=== PATIENT | male | born 1975 | race Caucasian/White ===

== ENCOUNTER 2020-12-30 03:26 | Outpatient (CLI) | payer MEDICARE, MEDICAID, SELFPAY ==
[2020-12-30 13:55] LABS: Abs Immature Grans 0.02 10^3/uL (0.0-0.06); Absolute Basophil Count 0.02 10^3/uL (0.0-0.2); Absolute Eosinophil Count 0.11 10^3/uL (0.0-0.7); Absolute Lymphocyte Count 1.55 10^3/uL (1.2-3.4); Absolute Monocyte Count 0.57 10^3/uL (0.1-0.8); Absolute Neutrophil Count 3.75 10^3/uL (1.2-6.7); Basophils % 0.3; Eosinophils % 1.8; HCT 31.1 % (40.0-50.0); HGB 10.5 g/dL (13.5-17.5); Immature Grans % 0.3; Lymphocytes % 25.7; MCHC 33.8 % (32.0-36.0); MCV 94.8 fL (80-95); MPV 10.9 fL (8.0-11.0); Monocytes % 9.5; Neutrophils % 62.4; Nucleated RBC 0 %; Platelet Count 169 10^3/uL (130-400); RBC 3.28 10^6/uL (4.36-5.78); RDW 12.3 % (11.8-14.1); RDW-SD 43.2 fL; WBC 6.02 10^3/uL (4.4-10.8)
[2020-12-30 14:30] LABS: Hemoglobin A1C 5.6 % (<5.7)
[2020-12-30 15:07] LABS: Vitamin D 25 Total 24.2 ng/mL (30-100)
[2020-12-30 15:12] LABS: ALT 21 U/L (16-63); AST 13 U/L (15-37); Albumin 4.2 g/dL (3.4-5.0); Alkaline Phosphatase 74 U/L (46-116); Anion Gap 9.2 mmol/L (3-11); BUN 28 mg/dL (7-18); Bilirubin, Total 0.3 mg/dL (0.2-1.0); CO2 24.8 mmol/L (21.0-32.0); CREATININE 2.7 mg/dL (0.70-1.30); Calcium 9.1 mg/dL (8.5-10.1); Calculated LDL 115 mg/dL (<100); Chloride 108 mmol/L (98-107); Cholesterol 190 mg/dL (<200); Estimated GFR 25.57 (mL/min/1.73m2); Glucose 103 mg/dL (74-106); HDL Cholesterol 49 mg/dL (40-60); Magnesium 2.2 mg/dL (1.8-2.4); Potassium 3.9 mmol/L (3.5-5.1); Sodium 142 mmol/L (136-145); Total Protein 7.3 g/dL (6.4-8.2); Triglyceride 134 mg/dL (<150); Vitamin B12 329 pg/mL (193-986)
[2020-12-30 15:35] LABS: C-Reactive Protein 0.07 mg/dL (0.0-0.3); FREE T4 0.68 ng/dL (0.76-1.46)
[2020-12-30 21:18] LABS: T3, Total 84 ng/dL (97-169)
== END 2020-12-30 03:27 | disposition home or self-care (01) ==
LOC: LBO 03:27
PROVIDERS: PCP Family Medicine; Visit Provider Psychiatry & Neurology Psychiatry
DX: F60.3 Borderline personality disorder (principal); Z79.899 Other long term (current) drug therapy
CPT/HCPCS: 36415; 80053; 80061; 82306; 82607; 83036; 83735; 84439; 84480; 85025; 86140

== ENCOUNTER 2021-03-10 03:53 | Outpatient (CLI) | payer MEDICARE, MEDICAID, SELFPAY ==
[2021-03-10 11:27] LABS: Abs Immature Grans 0.01 10^3/uL (0.0-0.06); Absolute Basophil Count 0.02 10^3/uL (0.0-0.2); Absolute Eosinophil Count 0.15 10^3/uL (0.0-0.7); Absolute Lymphocyte Count 1.24 10^3/uL (1.2-3.4); Absolute Monocyte Count 0.48 10^3/uL (0.1-0.8); Absolute Neutrophil Count 2.14 10^3/uL (1.2-6.7); Basophils % 0.5; Eosinophils % 3.7; HCT 32.7 % (40.0-50.0); HGB 10.8 g/dL (13.5-17.5); Immature Grans % 0.2; Lymphocytes % 30.7; MCV 96.7 fL (80-95); MPV 10.5 fL (8.0-11.0); Monocytes % 11.9; Nucleated RBC 0 %; Platelet Count 143 10^3/uL (130-400); RBC 3.38 10^6/uL (4.36-5.78); RDW 12.4 % (11.8-14.1); WBC 4.04 10^3/uL (4.4-10.8)
[2021-03-10 12:22] LABS: TSH (W/Ref FT4) 1.01 uIU/mL (0.36-3.74)
== END 2021-03-10 03:54 | disposition home or self-care (01) ==
LOC: LBO 03:53
PROVIDERS: PCP Family Medicine; Visit Provider Psychiatry & Neurology Psychiatry
DX: E78.5 Hyperlipidemia, unspecified (principal); R68.89 Other general symptoms and signs
CPT/HCPCS: 36415; 84443; 85025

== ENCOUNTER 2021-07-02 01:28 | Emergency (ER) | payer MEDICARE, MEDICAID, SELFPAY ==
[2021-07-02 01:30] VITALS: BP 131/84; PULSE 88; RESP 16; TEMP 36.4; O2SAT 98
--- NOTE | 2021-07-02 01:41 | W.ED.GENAD ---
Discharge Plan Disposition Patient Disposition: HOME Condition: Stable Discharge Details Clinical Impression: Depression Primary Care Provider: Titus Dunlap ED Provider: Ray Lucio Home Meds and New Rx's Prescriptions: Continued acetylcysteine [NAC] 600 mg capsule 1,200 mg PO BID RF: 0 docusate sodium [Colace] 100 mg capsule 100 mg PO BID Qty: 180 RF: 3 omeprazole 40 mg capsule,delayed release(DR/EC) 40 mg PO DAILY Qty: 90 RF: 3 simvastatin 20 mg tablet 20 mg PO QHS Qty: 90 RF: 3 lisinopril 10 mg tablet 10 mg PO DAILY Qty: 90 RF: 3 Refresh Relieva PF 0.5-0.9 % drops 1 drp ophthalmic (eye) DAILY PRNRF: 0 quetiapine [Seroquel] 400 mg tablet 400 mg PO BID RF: 0 Probiotic 3 billion cell capsule 3,000 mmu cells PO DAILY Qty: 90 RF: 0 trazodone 100 mg Tablet 100 mg PO QHS RF: 0 Discharge Instructions Additional Instructions: follow up with [facility] services as discussed and your primary care provider within a week if you have worsening thoughts of self harm or feel more ill return to the emergency department Medical Decision Making <Sam Claire DO - Last Filed: 07/02/21 06:55> 45-year-old male with a past medical history of bipolar, asthma, chronic anemia, high cholesterol, previous suicidality, who resides at [facility] presents today for evaluation of suicidal ideations. This evening the patient states that he is wants to end his life by beating himself, laying down in the road, or taking a bunch of pills. He has tried to hurt himself in the past by taking a bunch of pills. Patient does admit to hearing voices, and states that they have the voices of his family who is not present however he denies any suicidal messages from them. He denies any homicidal ideations. He denies any chest or abdominal pain. He denies any shortness of breath or fever. 79 has no other complaints at this time. He denies any IV or illicit drug use. Physical exam is unremarkable. Symptoms are concerning for suicidal ideations. We will medically clear the patient, consult mental health, place the patient in blue scrubs observe the patient. Will monitor closely and reassess 6:52 AM Laboratory work-up has returned, hemoglobin is 11, and this is stable for him. Potassium minimally low at 3.3, we have given 40 mEq of oral potassium. Creatinine is 2.3, and GFR 30 which is at the patient's baseline. Remainder of his work-up is relatively unremarkable. Covid test negative. Patient did slightly escalate during the evening, we did give him 2 mg of Ativan to help relax and rest for the night. This was notably beneficial. Mental health has assessed the patient, they agree with the need for psychiatric management, and will look for bed placement options. No beds are available here at [facility] currently. Patient will be signed out to my colleagues for further and continued assessment until disposition can be made. <Johnny Nelson MD - Last Filed: 07/02/21 13:53> Patient has remained stable and interactive through the morning shift. No current appropriate psychiatric facility available at this time. Patient will be signed out the oncoming physician pending further disposition. <Ray Lucio MD - Last Filed: 07/03/21 10:17> patient calm and cooperative, is sitting in his bed listening to music without complaints other than continued depression though he currently to me is denying any si/hi and is not agitated with clear speech, caox4. Still pending psychiatric bed placement pt reevaluated by [facility] and they also note he is no loner having SI so doesn't meet criteria to be placed at psychiatric facility, will be d/c'd with safetly plan. Patient agrees with this plan and is happy with this, return precautions given HPI <Sam Claire DO - Last Filed: 07/02/21 06:55> General Date/Time Provider Initiated Documentation: 07/02/21 01:37. HPI Narrative: 45-year-old male with a past medical history of bipolar, asthma, chronic anemia, high cholesterol, previous suicidality, who resides at [facility] presents today for evaluation of suicidal ideations. This evening the patient states that he is wants to end his life by beating himself, laying down in the road, or taking a bunch of pills. He has tried to hurt himself in the past by taking a bunch of pills. Patient does admit to hearing voices, and states that they have the voices of his family who is not present however he denies any suicidal messages from them. He denies any homicidal ideations. He denies any chest or abdominal pain. He denies any shortness of breath or fever. 79 has no other complaints at this time. He denies any IV or illicit drug use. Related Data Home Medications Medication Instructions Recorded Confirmed acetylcysteine 600 mg capsule 1,200 mg PO BID cap 02/01/20 07/02/21 docusate sodium 100 mg capsule 100 mg PO BID #180 cap 09/16/20 07/02/21 omeprazole 40 mg capsule,delayed 40 mg PO DAILY #90 cap 09/16/20 07/02/21 release simvastatin 20 mg tablet 20 mg PO QHS #90 tab 09/20/20 07/02/21 lisinopril 10 mg tablet 10 mg PO DAILY #90 tab 11/04/20 07/02/21 carboxymethylcellulose 0.5 1 drp OPHTHALMIC (EYE) DAILY PRN 02/21/21 07/02/21 %-glycerin 0.9 % (PF) eye drops ml quetiapine 400 mg tablet 400 mg PO BID 02/21/21 07/02/21 lactobacillus combination no.4 3 3,000 mmu cells PO DAILY #90 cap 03/12/21 07/02/21 billion cell capsule trazodone 100 mg PO QHS 07/02/21 07/02/21 Previous Rx's Medication Instructions Recorded docusate sodium 100 mg capsule 100 mg PO BID #180 cap 09/16/20 omeprazole 40 mg capsule,delayed 40 mg PO DAILY #90 cap 09/16/20 release simvastatin 20 mg tablet 20 mg PO QHS #90 tab 09/20/20 lisinopril 10 mg tablet 10 mg PO DAILY #90 tab 11/04/20 lactobacillus combination no.4 3 3,000 mmu cells PO DAILY #90 cap 03/12/21 billion cell capsule Allergies Allergy/AdvReac Type Severity Reaction Status Date / Time dextromoramide Allergy Unknown Verified 07/02/21 01:38 bupropion [From Wellbutrin] AdvReac Mild jittery Verified 07/02/21 01:38 fluvoxamine [From Luvox] AdvReac Mild jittery Verified 07/02/21 01:38 methylphenidate AdvReac Mild jittery Verified 07/02/21 01:38 [From Ritalin] General Stated Complaint: PsychEval KARL: 2 Review of Systems <Sam Claire DO - Last Filed: 07/02/21 06:55> All systems reviewed & are unremarkable except as noted in HPI and below PFSH <Sam Claire DO - Last Filed: 07/02/21 06:55> Medical History Asthma Bipolar 1 disorder Chronic anemia Environmental allergies Esophagitis Essential hypertension Heart murmur History of blood transfusion Hyperlipidemia Renal impairment Testicular cancer Surgical History History of removal of testicle Social History Smoking/Tobacco Use Status: Never Smoking risk assessment performed?: Yes Alcohol Intake: never Drug use: Never Substance use type: does not use Adopted: No Caregiver/Support person: Yes Foster care: No Household members: caregiver Housing: other Details: [facility] Education Level: high school Do you need help understanding health information?: Often current occupation: Disabled Sexually active: No Do you think of yourself as: straight/heterosexual Current gender identity: male What type of physical activity do you participate in: walking Frequency: daily Seatbelt use: always Helmet use: Yes (NA) Working smoke detector in home: Yes Fire extinguisher in home: Yes Carbon monox detector in home: Yes Do you feel safe at home: No Exam <Sam Claire DO - Last Filed: 07/02/21 06:55> Narrative Exam Narrative: 1.Const: Well-nourished, Well-developed, appearing stated age 2.Eyes: PERRL, no conjunctival injection, and symmetrical lids. 3.ENT: Atraumatic external nose and ears. Moist MM. Neck: Symmetric, trachea midline, No thyromegaly. 4.CVS: +S1/S2, No murmurs or gallops. Peripheral pulses 2+ and equal in all extremities. Brisk capillary refill in all extremities. 5.RESP: Unlabored respiratory effort. Clear to auscultation bilaterally. No wheezes rales or rhonchi 6.GI: Soft, Nontender/Nondistended, No hepatosplenomegaly. No guarding or rebound. 7.MSK: Normocephalic/Atraumatic, Extremities w/o deformity or ttp No cyanosis or clubbing, Normal movement of all extremities 8.Skin: Warm, Dry. No rashes or lesions. 9.Neuro: distribution superintendent II-XII grossly intact. Sensation grossly intact, no focal neurologic deficits. 10.Psych: (AAO) x3. Flat affect Course <Sam Claire DO - Last Filed: 07/02/21 06:55> Vital Signs Vital signs: Vital Signs Temperature 36.4 C 07/02/21 01:30 Pulse 88 07/02/21 01:30 Respiratory Rate 16 07/02/21 01:30 Blood Pressure 131/84 07/02/21 01:30 Pulse Oximetry 98 07/02/21 01:30 Temperature 36.4 C 07/02/21 01:30 Temperature Source Oral 07/02/21 01:30 Pulse 88 07/02/21 01:30 Respiratory Rate 16 07/02/21 01:30 Respiratory Effort Non-Labored 07/02/21 01:38 Blood Pressure 131/84 07/02/21 01:30 Blood Pressure Position Sitting 07/02/21 01:30 Pulse Oximetry 98 07/02/21 01:30 Oxygen Delivery Method Room Air 07/02/21 01:30 Oxygen Flow Rate 0 07/02/21 01:30 Pain Level 0 07/02/21 01:30 Sign Out <Sam Claire DO - Last Filed: 07/02/21 06:55> Sign Out Data: Sign Out Comment: Bipolar, hears voices, suicidal and depression. Voluntarily here. Pending placement Last updated by Sam Claire DO at 07/02/21 06:58 Sign Out Comment: No beds available today, voluntary Last updated by Johnny Nelson MD at 07/02/21 15:31 Sign Out Comment: Voluntary, awaiting placement. Last updated by Thelma Robledo DO at 07/02/21 22:37 Sign Out Comment: No issues overnight. Medications reviewed. Pending placement at psych facility. Last updated by Jose Estrada MD at 07/03/21 07:48
[2021-07-02 01:50] LABS: Source Nasal/Nares
[2021-07-02 01:52] LABS: Abs Immature Grans 0.01 10^3/uL (0.0-0.06); Absolute Basophil Count 0.03 10^3/uL (0.0-0.2); Absolute Eosinophil Count 0.15 10^3/uL (0.0-0.7); Absolute Lymphocyte Count 1.25 10^3/uL (1.2-3.4); Absolute Monocyte Count 0.53 10^3/uL (0.1-0.8); Absolute Neutrophil Count 2.43 10^3/uL (1.2-6.7); Basophils % 0.7; Eosinophils % 3.4; HCT 34.2 % (40.0-50.0); Immature Grans % 0.2; Lymphocytes % 28.4; MCH 31.2 pg (27.0-33.0); MCHC 32.2 % (32.0-36.0); MCV 96.9 fL (80-95); MPV 10.9 fL (8.0-11.0); Neutrophils % 55.3; Nucleated RBC 0 %; Platelet Count 154 10^3/uL (130-400); RBC 3.53 10^6/uL (4.36-5.78); RDW 12.3 % (11.8-14.1); RDW-SD 43.4 fL
[2021-07-02 02:06] LABS: *AMPHETAMINES SCREEN URINE Negative (Negative); *BARBITURATES SCREEN URINE Negative (Negative); *BENZODIAZEPINES SCREEN URINE Negative (Negative); Cannabinoids THC Negative (Negative); Cocaine Screen,Urine Negative (Negative); METHADONE URINE SCREEN Negative (Negative); OPIATES URINE SCREEN Negative (Negative)
[2021-07-02 02:08] LABS: Salicylate < 2.8 mg/dL (<2.8)
[2021-07-02 02:13] LABS: Acetaminophen < 2 ug/mL (10-30)
[2021-07-02 02:14] LABS: Tricyclic Antidepressants Positive (Negative)
[2021-07-02 02:15] LABS: ALT 20 U/L (16-63); AST 14 U/L (15-37); Albumin 4.7 g/dL (3.4-5.0); Alkaline Phosphatase 72 U/L (46-116); Anion Gap 10.6 mmol/L (3-11); BUN 29 mg/dL (7-18); Bilirubin, Total 0.3 mg/dL (0.2-1.0); CO2 27.4 mmol/L (21.0-32.0); CREATININE 2.3 mg/dL (0.70-1.30); Calcium 9.4 mg/dL (8.5-10.1); Chloride 105 mmol/L (98-107); Estimated GFR 30.77 (mL/min/1.73m2); Glucose 101 mg/dL (74-106); Potassium 3.3 mmol/L (3.5-5.1); Sodium 143 mmol/L (136-145); TSH (W/Ref FT4) 1.92 uIU/mL (0.36-3.74)
[2021-07-02 02:17] LABS: ETHANOL BLOOD < 3.0 mg/dL (<10)
[2021-07-02 02:41] LABS: COVID-19 PCR Negative (Negative)
[2021-07-02] MEDS: Potassium Chloride 20 MEQ TABCR 40 MEQ PO (02:48)
[2021-07-02] MEDS: LORazepam 1 MG TAB 2 MG PO (03:59)
[2021-07-02] MEDS: Omeprazole 20 MG CAPCR 40 MG PO (07:22)
[2021-07-02] MEDS: Acetylcysteine 600 MG CAP 1200 MG PO ×2 (08:16→20:34)
[2021-07-02] MEDS: QUEtiapine 300 MG, QUEtiapine 100 MG 400 MG PO ×2 (08:16→20:34)
[2021-07-02 12:48] VITALS: BP 114/75; PULSE 83; RESP 18; TEMP 36.5; O2SAT 97
--- NOTE | 2021-07-02 13:34 | CMSP_ITS ---
- If Service Date Differs Date of service: 07/02/21 Time of Service: 13:34 Care Management Safety Plan Status: Voluntary - Reason for Wait Reason for Wait: Inpatient Admission Safety plan has been established with patient, and care team, to adhere to patient goals, identify restrictions based on behavioral status, address nutrition, and determine allowed personal belongings, tools for hygiene and personal care. Determine level of activity including ambulation, level of supervision, visitors, and determine privileges based on behaviors and level of engagement by pt. A huddle is held at 13:30 pm with Debby, Nursing Appellate Law Clerk, Zoë, SHARONDA, and Kandace, Curing Supervisor, in attendance. SAFETY PLAN: 1. Will remain on suicide precautions. In Paper Clothes. 2. Will remain in room under direct supervision of one-on-one staff at all times provided by CPSO, REJI, RCP money laundering investigator. 3. May have paper cups, plates, finger foods as well as a cardboard spoon with which to eat meals. 4. Follow [facility] Management of the Admitted Behavioral Health Patient policy. 5. Personal Care: Comfort system available as well as shower with escort to shower room, at RN discretion. 6. No personal belongings with the exception of his glasses. 7. Visitors-No visitors at this time 8. Activities: Soft cart items, music tablet, television if available, and other activities at RN discretion. 9. Bathroom privileges with escort while in the ED; bathroom available in room on M/S without limitation. 10. Phone: May use [employer] hospital phone for incoming and outgoing phone calls at RN discretion. 11. Due to VOLUNTARY status, if patient wishes to leave [facility], staff will contact [facility] Crisis Screener ([phone]) and On-Call Curing Supervisor ([phone]) as soon as possible. In the event of elopement, notify [place] Police ([phone]). Patient is currently voluntarily at [facility] and seeking inpatient admission when a bed becomes available. [facility] Frontline Electromechanisms Design Drafter will continue seeking placement. Please contact the Music Therapy Teacher Curing Supervisor ([phone]) and [facility] Electromechanisms Design Drafter ([phone]) for any needed changes in the Safety Plan. Safety plan has been provided to interdepartmental care team.
--- NOTE | 2021-07-02 16:27 | CMPROGNOTE_ITS ---
- If Service Date Differs Date of service: 07/02/21 Time of Service: 16:27 Care Management Progress Note S/O: Doron resides at the [facility] in [place], [place]. He receives services through the SECURITY SYSTEMS TECHNICIAN Program at [facility] and Janet Madrid is his egg caser. Doron reports that he is at [facility] because he is depressed and is having thoughts of harming himself. He shares he has been psychiatrically hospitalized twice in the past with the most recent hospitalization being at [facility]. Doron has been calm and cooperative since his arrival at [facility]. He is occupying his time with crossword puzzles and word searches. A: Doron is a 45 year old male admitted to [facility] for suicidal ideation. P: There are no available psychiatric beds today. Doron will remain at [facility] while [facility] continues to seek placement for him. will continue to follow. - Status Status: Voluntary - Reason for Wait Reason for Wait: Inpatient Admission
--- NOTE | 2021-07-02 16:27 | PDOC.ERCMPRO ---
- If Service Date Differs Date of service: 07/02/21 Time of Service: 16:27 Care Management Progress Note S/O: Doron resides at the [facility] in [place], [place]. He receives services through the SHIPPING SERVICES SALES REPRESENTATIVE Program at [facility] and Janet Madrid is his immigration case manager. Doron reports that he is at [facility] because he is depressed and is having thoughts of harming himself. He shares he has been psychiatrically hospitalized twice in the past with the most recent hospitalization being at [facility]. Doron has been calm and cooperative since his arrival at [facility]. He is occupying his time with crossword puzzles and word searches. A: Doron is a 45 year old male admitted to [facility] for suicidal ideation. P: There are no available psychiatric beds today. Doron will remain at [facility] while [facility] continues to seek placement for him. will continue to follow. - Status Status: Voluntary - Reason for Wait Reason for Wait: Inpatient Admission
[2021-07-02 17:00] VITALS: BP 107/70; PULSE 81; RESP 16; TEMP 37; O2SAT 97
[2021-07-02] MEDS: Simvastatin 20 MG TAB PO (20:34)
[2021-07-03] MEDS: traZODone 100 MG TAB PO (02:00)
[2021-07-03] MEDS: Omeprazole 20 MG CAPCR 40 MG PO (08:13)
[2021-07-03 08:49] VITALS: BP 131/82; PULSE 85; RESP 18; TEMP 37; O2SAT 98
[2021-07-03] MEDS: QUEtiapine 300 MG, QUEtiapine 100 MG 400 MG PO (09:25)
[2021-07-03] MEDS: Acetylcysteine 600 MG CAP 1200 MG PO (09:25)
--- NOTE | 2021-07-03 10:21 | CMPROGNOTE_ITS ---
- If Service Date Differs Date of service: 07/03/21 Time of Service: 10:21 Care Management Progress Note DISCHARGE NOTE: Doron is reassessed by [facility] WATER CONSERVATION SPECIALIST Program this morning and is deemed safe to return home, as he is currently denying suicidality. When meets with Doron, he says his only concern is his inability to sleep at [place] where he resides. He shares that he was prescribed medication for sleep prior to coming to [facility] but the medication was never picked up from the pharm acy. telephones Janet Madrid, his [facility] pillowcase turner, and requests that she ensure that the shelter has his sleep medication and asks that Janet notify the government program manager of Doron's return before arranges [facility] transport. Doron will follow up with [facility] and other community providers on an outpatient basis. He will be transported back to [place] by [facility] private vehicle. - MH Services (Omit if N/A) Current MH Services: WATER CONSERVATION SPECIALIST
--- NOTE | 2021-07-03 10:21 | PDOC.ERCMPRO ---
- If Service Date Differs Date of service: 07/03/21 Time of Service: 10:21 Care Management Progress Note DISCHARGE NOTE: Doron is reassessed by [facility] DOLL DRESSER Program this morning and is deemed safe to return home, as he is currently denying suicidality. When meets with Doron, he says his only concern is his inability to sleep at [place] where he resides. He shares that he was prescribed medication for sleep prior to coming to [facility] but the medication was never picked up from the pharmacy. telephones Janet Madrid, his [facility] business relationship manager, and requests that she ensure that the half-way has his sleep medication and asks that Janet notify the support group manager of Doron's return before arranges [facility] transport. Doron will follow up with [facility] and other community providers on an outpatient basis. He will be transported back to [place] by [facility] private vehicle. - MH Services (Omit if N/A) Current MH Services: DOLL DRESSER
[2021-07-03 10:49] VITALS: BP 113/72; PULSE 86; RESP 16; TEMP 37.1; O2SAT 96
== END 2021-07-03 12:19 | disposition home or self-care (01) ==
PROVIDERS: Student in an Organized Health Care Education/Training Program; Emergency Provider Emergency Medicine; PCP Family Medicine
DX: F32.9 Major depressive disorder, single episode, unspecified (principal); R45.851 Suicidal ideations; R44.0 Auditory hallucinations; E87.6 Hypokalemia; Z91.51 Personal history of suicidal behavior; Z20.822 Contact with and (suspected) exposure to COVID-19; Z03.818 Encounter for observation for suspected exposure to other biological agents ruled out
CPT/HCPCS: 36415; 80053; 80307; 87635; 99285; 80320; 80329; 84443; 85025; 99284

== ENCOUNTER 2021-07-16 12:08 | Emergency (ER) | payer MEDICARE, MEDICAID, SELFPAY ==
[2021-07-16 12:11] VITALS: BP 123/74; PULSE 89; RESP 16; TEMP 36.7; O2SAT 99
[2021-07-16 12:39] LABS: Source Nasal/Nares
[2021-07-16 12:42] LABS: Abs Immature Grans 0.01 10^3/uL (0.0-0.06); Absolute Basophil Count 0.03 10^3/uL (0.0-0.2); Absolute Eosinophil Count 0.14 10^3/uL (0.0-0.7); Absolute Lymphocyte Count 1.15 10^3/uL (1.2-3.4); Absolute Monocyte Count 0.57 10^3/uL (0.1-0.8); Absolute Neutrophil Count 3.32 10^3/uL (1.2-6.7); Basophils % 0.6; Eosinophils % 2.7; HGB 10.9 g/dL (13.5-17.5); Immature Grans % 0.2; MCH 31.6 pg (27.0-33.0); MCV 95.7 fL (80-95); Monocytes % 10.9; Neutrophils % 63.6; Nucleated RBC 0 %; Platelet Count 184 10^3/uL (130-400); RBC 3.45 10^6/uL (4.36-5.78); RDW 12.3 % (11.8-14.1); RDW-SD 42.7 fL; WBC 5.22 10^3/uL (4.4-10.8)
[2021-07-16 13:05] LABS: Bilirubin Negative (Negative); Blood Trace-intact (Negative); Clarity Clear (Clear); Glucose Negative (Negative); Ketones Negative (Negative); Leukocyte Esterase Negative (Negative); Nitrite Negative (Negative); Urobilinogen 0.2 EU/dL (Up TO 0.2)
[2021-07-16 13:07] LABS: ALT 32 U/L (16-63); AST 24 U/L (15-37); Albumin 4.5 g/dL (3.4-5.0); Alkaline Phosphatase 74 U/L (46-116); Anion Gap 8.2 mmol/L (3-11); BUN 22 mg/dL (7-18); Bilirubin, Total 0.3 mg/dL (0.2-1.0); CO2 28.8 mmol/L (21.0-32.0); CREATININE 2.2 mg/dL (0.70-1.30); Calcium 9.6 mg/dL (8.5-10.1); Chloride 105 mmol/L (98-107); Estimated GFR 32.38 (mL/min/1.73m2); Glucose 106 mg/dL (74-106); Potassium 3.7 mmol/L (3.5-5.1); Sodium 142 mmol/L (136-145); TSH (W/Ref FT4) 0.86 uIU/mL (0.36-3.74); Total Protein 7.9 g/dL (6.4-8.2)
[2021-07-16 13:14] LABS: ETHANOL BLOOD < 3.0 mg/dL (<10)
[2021-07-16 13:15] LABS: Bacteria Negative HPF (Negative); C & S Indicated? No; Casts Negative LPF (Negative); Crystals Negative HPF (Negative); Epithelial Cells Negative HPF (Negative); Mucus Negative (Negative); RBC 0-2 HPF (0-2); WBC Negative HPF (0-5)
[2021-07-16 13:17] LABS: *AMPHETAMINES SCREEN URINE Negative (Negative); *BARBITURATES SCREEN URINE Negative (Negative); *BENZODIAZEPINES SCREEN URINE Negative (Negative); Cannabinoids THC Negative (Negative); Cocaine Screen,Urine Negative (Negative); METHADONE URINE SCREEN Negative (Negative); OPIATES URINE SCREEN Negative (Negative)
[2021-07-16 13:20] LABS: Tricyclic Antidepressants Negative (Negative)
--- NOTE | 2021-07-16 13:26 | W.ED.GENAD ---
Discharge Plan Disposition Patient Disposition: OTHER Condition: Stable Discharge Details Clinical Impression: Depression with suicidal ideation Primary Care Provider: Titus Dunlap ED Provider: Kip Pham Home Meds and New Rx's Prescriptions: Continued acetylcysteine [NAC] 600 mg capsule 1,200 mg PO BID RF: 0 docusate sodium [Colace] 100 mg capsule 100 mg PO BID Qty: 180 RF: 3 omeprazole 40 mg capsule,delayed release(DR/EC) 40 mg PO DAILY Qty: 90 RF: 3 simvastatin 20 mg tablet 20 mg PO QHS Qty: 90 RF: 3 lisinopril 10 mg tablet 10 mg PO DAILY Qty: 90 RF: 3 Refresh Relieva PF 0.5-0.9 % drops 1 drp ophthalmic (eye) DAILY PRNRF: 0 quetiapine [Seroquel] 400 mg tablet 400 mg PO BID RF: 0 Probiotic 3 billion cell capsule 3,000 mmu cells PO DAILY Qty: 90 RF: 0 trazodone 100 mg Tablet 100 mg PO QHS RF: 0 cholecalciferol (vitamin D3) 125 mcg (5,000 unit) capsule 5,000 unit PO DAILY RF: 0 Discharge Instructions Instructions: Depression (ED), Help Prevent Suicide (ED) Additional Instructions: You have been provided with a medical screening examination here in the ER, no emergent process was identified that would inhibit discharge from the ER entrance patient to the local care bed. Please watch for new or worsening symptoms and return to the ER for any concerns. Otherwise please follow the instructions given to you at the care bed and follow-up with your primary care provider at your convenience. Medical Decision Making 45-year-old gentleman presenting with acute on chronic depression and suicidal ideation requesting a medical screening examination so he may go to a care bed. Mental health evaluation already completed, a care bed is available once medically cleared. Patient has no acute medical concerns or complaints today. He denies any self-harm today. Will initiate a CPSO and interim care plan. Will obtain routine medical screening labs as well as a Covid test. Patient has remained calm and cooperative throughout his ER stay. Witnessed ambulating to the restroom without difficulty. Able to tolerate p.o. intake without any difficulty. Laboratory values reviewed, no emergent process that would inhibit discharge from the ER so the patient can go to the care bed. Patient with baseline anemia, baseline renal function, no signs of infection, negative Covid, negative tox screen, alcohol less than 3. Standard discharge and return precautions provided. This documentation was generated using [employer] dictation system, please disregard any oddities of phrase or misspellings. Medical Records Medical records reviewed: Yes I reviewed the patient's medical records. Lab Data Lab results reviewed: Yes I reviewed the patient's lab results. Labs: Laboratory Tests Range/Units 07/16/21 07/16/21 07/16/21 12:30 12:30 12:35 WBC (4.4-10.8) 10^3/uL 5.22 RBC (4.36-5.78) 10^6/uL 3.45 L Hgb (13.5-17.5) g/dL 10.9 L Hct (40.0-50.0) % 33.0 L MCV (80-95) fL 95.7 H MCH (27.0-33.0) pg 31.6 MCHC (32.0-36.0) % 33.0 RDW (11.8-14.1) % 12.3 Plt Count (130-400) 10^3/uL 184 MPV (8.0-11.0) fL 11.0 Immature Gran % 0.2 Neutrophils % 63.6 Lymphocytes % 22.0 Monocytes % 10.9 Eosinophils % 2.7 Basophils % 0.6 Nucleated RBC % % 0 Absolute Neutrophils (1.2-6.7) 10^3/uL 3.32 Absolute Lymphocytes (1.2-3.4) 10^3/uL 1.15 L Absolute Monocytes (0.1-0.8) 10^3/uL 0.57 Absolute Eosinophils (0.0-0.7) 10^3/uL 0.14 Absolute Basophils (0.0-0.2) 10^3/uL 0.03 Sodium (136-145) mmol/L 142 Potassium (3.5-5.1) mmol/L 3.7 Chloride (98-107) mmol/L 105 Carbon Dioxide (21.0-32.0) mmol/L 28.8 Anion Gap (3-11) mmol/L 8.2 BUN (7-18) mg/dL 22 H Creatinine (0.70-1.30) mg/dL 2.2 H Estimated GFR/1.73 m2 (mL/min/1.73m2) 32.38 Glucose (74-106) mg/dL 106 Calcium (8.5-10.1) mg/dL 9.6 Total Bilirubin (0.2-1.0) mg/dL 0.3 AST (15-37) U/L 24 ALT (16-63) U/L 32 Alkaline Phosphatase (46-116) U/L 74 Total Protein (6.4-8.2) g/dL 7.9 Albumin (3.4-5.0) g/dL 4.5 TSH (0.36-3.74) uIU/mL 0.86 Urine Color (Yellow) Urine Clarity (Clear) Urine pH (5-8) Ur Specific [place] (1.005-1.025) Urine Protein (Negative) mg/dL Urine Ketones (Negative) mg/dL Urine Blood (Negative) Urine Nitrite (Negative) Urine Bilirubin (Negative) Urine Urobilinogen (Up TO 0.2) EU/dL Ur Leukocyte Esterase (Negative) Urine RBC (0-2) HPF Urine WBC (0-5) HPF Ur Epithelial Cells (Negative) HPF Urine Crystals (Negative) HPF Urine Bacteria (Negative) HPF Urine Casts (Negative) LPF Urine Mucus (Negative) Ur Culture Indicated? Urine Glucose (Negative) mg/dL Urine Opiates Screen (Negative) Urine Methadone Screen (Negative) Ur Barbiturates Screen (Negative) Ur Tricyclics Screen (Negative) Ur Amphetamines Screen (Negative) U Benzodiazepines Scrn (Negative) Urine Cocaine Screen (Negative) Ur THC Screen (Negative) Ethyl Alcohol (<10) mg/dL < 3.0 COVID-19 Source Nasal/Nares SARS-CoV-2 (PCR) (Negative) Negative Range/Units 07/16/21 07/16/21 12:52 12:52 WBC (4.4-10.8) 10^3/uL RBC (4.36-5.78) 10^6/uL Hgb (13.5-17.5) g/dL Hct (40.0-50.0) % MCV (80-95) fL MCH (27.0-33.0) pg MCHC (32.0-36.0) % RDW (11.8-14.1) % Plt Count (130-400) 10^3/uL MPV (8.0-11.0) fL Immature Gran % Neutrophils % Lymphocytes % Monocytes % Eosinophils % Basophils % Nucleated RBC % % Absolute Neutrophils (1.2-6.7) 10^3/uL Absolute Lymphocytes (1.2-3.4) 10^3/uL Absolute Monocytes (0.1-0.8) 10^3/uL Absolute Eosinophils (0.0-0.7) 10^3/uL Absolute Basophils (0.0-0.2) 10^3/uL Sodium (136-145) mmol/L Potassium (3.5-5.1) mmol/L Chloride (98-107) mmol/L Carbon Dioxide (21.0-32.0) mmol/L Anion Gap (3-11) mmol/L BUN (7-18) mg/dL Creatinine (0.70-1.30) mg/dL Estimated GFR/1.73 m2 (mL/min/1.73m2) Glucose (74-106) mg/dL Calcium (8.5-10.1) mg/dL Total Bilirubin (0.2-1.0) mg/dL AST (15-37) U/L ALT (16-63) U/L Alkaline Phosphatase (46-116) U/L Total Protein (6.4-8.2) g/dL Albumin (3.4-5.0) g/dL TSH (0.36-3.74) uIU/mL Urine Color (Yellow) Yellow Urine Clarity (Clear) Clear Urine pH (5-8) 6.0 Ur Specific [place] (1.005-1.025) 1.010 Urine Protein (Negative) mg/dL Negative Urine Ketones (Negative) mg/dL Negative Urine Blood (Negative) Trace-intact H Urine Nitrite (Negative) Negative Urine Bilirubin (Negative) Negative Urine Urobilinogen (Up TO 0.2) EU/dL 0.2 Ur Leukocyte Esterase (Negative) Negative Urine RBC (0-2) HPF 0-2 Urine WBC (0-5) HPF Negative Ur Epithelial Cells (Negative) HPF Negative Urine Crystals (Negative) HPF Negative Urine Bacteria (Negative) HPF Negative Urine Casts (Negative) LPF Negative Urine Mucus (Negative) Negative Ur Culture Indicated? No Urine Glucose (Negative) mg/dL Negative Urine Opiates Screen (Negative) Negative Urine Methadone Screen (Negative) Negative Ur Barbiturates Screen (Negative) Negative Ur Tricyclics Screen (Negative) Negative Ur Amphetamines Screen (Negative) Negative U Benzodiazepines Scrn (Negative) Negative Urine Cocaine Screen (Negative) Negative Ur THC Screen (Negative) Negative Ethyl Alcohol (<10) mg/dL COVID-19 Source SARS-CoV-2 (PCR) (Negative) HPI General Mode of arrival: ambulatory. Date/Time Provider Initiated Documentation: 07/16/21 12:10. Limitations to Documentation: no limitations. Information obtained by: patient. HPI Narrative: This is a 45-year-old gentleman, past medical history of depression, hypertension, bipolar 1 disorder, asthma, chronic anemia, CKD, presenting to the ER today for a medical screening examination so he may go to a care bed for acute on chronic depression and suicidal ideation. Patient denies recent illness or trauma. Mental health screening and intake already completed. Patient reports that he has tried to harm self in the past with overdose of medication but did not do anything to harm himself today. Patient states that he is compliant with his medications. He currently has no acute medical concerns or complaints. Patient is unsure of any obvious exacerbating factors that brought on this worsening depression. He also states that he is having a difficult time sleeping. Related Data Home Medications Medication Instructions Recorded Confirmed acetylcysteine 600 mg capsule 1,200 mg PO BID cap 02/01/20 07/16/21 docusate sodium 100 mg capsule 100 mg PO BID #180 cap 09/16/20 07/16/21 omeprazole 40 mg capsule,delayed 40 mg PO DAILY #90 cap 09/16/20 07/16/21 release simvastatin 20 mg tablet 20 mg PO QHS #90 tab 09/20/20 07/02/21 lisinopril 10 mg tablet 10 mg PO DAILY #90 tab 11/04/20 07/16/21 carboxymethylcellulose 0.5 1 drp OPHTHALMIC (EYE) DAILY PRN 02/21/21 07/16/21 %-glycerin 0.9 % (PF) eye drops ml quetiapine 400 mg tablet 400 mg PO BID 02/21/21 07/16/21 lactobacillus combination no.4 3 3,000 mmu cells PO DAILY #90 cap 03/12/21 07/16/21 billion cell capsule trazodone 100 mg PO QHS 07/02/21 07/16/21 cholecalciferol (vitamin D3) 5,000 unit PO DAILY 07/16/21 07/16/21 Previous Rx's Medication Instructions Recorded docusate sodium 100 mg capsule 100 mg PO BID #180 cap 09/16/20 omeprazole 40 mg capsule,delayed 40 mg PO DAILY #90 cap 09/16/20 release simvastatin 20 mg tablet 20 mg PO QHS #90 tab 09/20/20 lisinopril 10 mg tablet 10 mg PO DAILY #90 tab 11/04/20 lactobacillus combination no.4 3 3,000 mmu cells PO DAILY #90 cap 03/12/21 billion cell capsule Allergies Allergy/AdvReac Type Severity Reaction Status Date / Time dextromoramide Allergy Unknown Verified 07/16/21 12:17 bupropion [From Wellbutrin] AdvReac Mild jittery Verified 07/16/21 12:17 fluvoxamine [From Luvox] AdvReac Mild jittery Verified 07/16/21 12:17 methylphenidate AdvReac Mild jittery Verified 07/16/21 12:17 [From Ritalin] General Stated Complaint: PsychEval KARL: 2 Review of Systems Constitutional Constitutional: Denies fever(s) and Denies headache(s) ENT Ears, Nose, Mouth, and Throat: Denies headache(s) and Denies neck pain Cardiovascular Cardiovascular: Denies chest pain and Denies dyspnea Respiratory Respiratory: Denies cough and Denies dyspnea Gastrointestinal Gastrointestinal: Denies abdominal pain, Denies nausea and Denies vomiting Genitourinary Genitourinary: Denies dysuria Musculoskeletal Musculoskeletal: Denies back pain and Denies neck pain Integumentary/Breasts Skin/Breast: Denies rash Neurologic Neurologic: Denies headache(s) Psychiatric Psychiatric: Reports depression, Denies homicidal ideation and Reports suicidal ideation [facility] Medical History Asthma Bipolar 1 disorder Chronic anemia Environmental allergies Esophagitis Essential hypertension Heart murmur History of blood transfusion Hyperlipidemia Renal impairment Testicular cancer Surgical History History of removal of testicle Social History Smoking/Tobacco Use Status: Never Smoking risk assessment performed?: Yes Alcohol Intake: never Drug use: Never Substance use type: does not use Adopted: No Caregiver/Support person: Yes Foster care: No Household members: caregiver Housing: other Details: [facility] [place] Education Level: high school Do you need help understanding health information?: Often current occupation: Disabled Sexually active: No Do you think of yourself as: straight/heterosexual Current gender identity: male What type of physical activity do you participate in: walking Frequency: daily Seatbelt use: always Helmet use: Yes (NA) Working smoke detector in home: Yes Fire extinguisher in home: Yes Carbon monox detector in home: Yes Do you feel safe at home: No Exam Const General: cooperative, healthy appearing, comfortable and no acute distress Orientation: alert, awake and oriented x3 HENMT Head: normal to inspection, normocephalic and atraumatic Face and sinus: normal facial exam Mouth: moist mucous membranes Eyes General: appearance normal, both eyes and all related structures Conjunctivae: conjunctivae normal Neck Neck: normal visual inspection, trachea midline and supple Resp Effort & Inspection: normal respiratory effort and able to speak in complete sentences Auscultation: clear to auscultation bilaterally Cardio Rate: regular rate Rhythm: regular rhythm GI Palpation: soft and nontender Back/Spine/Pelvis Back: No back tenderness Skin General skin exam: no rashes or lesions noted Neuro General: patient alert, patient awake, patient oriented x3, moves all extremities and no focal motor deficits Cognition: normal cognition Speech: speech normal Gait: normal gait Sensory Exam: no sensory deficits noted Extrem General: normal to inspection and full ROM Psych Appearance: grossly normal Mental Status: mental status grossly normal Speech and Movement: speech and movement normal Mood: dysthymic mood Affect: sad Attitude: cooperative Thought Process: normal Thought Content: suicidality Insight: fair Judgment: fair Course Vital Signs Vital signs: Vital Signs Temperature 36.7 C 07/16/21 12:11 Pulse 89 07/16/21 12:11 Respiratory Rate 16 07/16/21 12:11 Blood Pressure 123/74 07/16/21 12:11 Pulse Oximetry 99 07/16/21 12:11 Temperature 36.7 C 07/16/21 12:11 Temperature Source Skin 07/16/21 12:11 Pulse 89 07/16/21 12:11 Respiratory Rate 16 07/16/21 12:11 Respiratory Effort Non-Labored 07/16/21 12:11 Blood Pressure 123/74 07/16/21 12:11 Blood Pressure Position Sitting 07/16/21 12:11 Pulse Oximetry 99 07/16/21 12:11 Oxygen Delivery Method Room Air 07/16/21 12:11 Oxygen Flow Rate 0 07/16/21 12:11 Pain Level 0 07/16/21 12:11 Lab/Test Results Lab/Test Results: Laboratory Tests Range/Units 07/16/21 07/16/21 07/16/21 12:30 12:30 12:35 WBC (4.4-10.8) 10^3/uL 5.22 RBC (4.36-5.78) 10^6/uL 3.45 L Hgb (13.5-17.5) g/dL 10.9 L Hct (40.0-50.0) % 33.0 L MCV (80-95) fL 95.7 H MCH (27.0-33.0) pg 31.6 MCHC (32.0-36.0) % 33.0 RDW (11.8-14.1) % 12.3 Plt Count (130-400) 10^3/uL 184 MPV (8.0-11.0) fL 11.0 Immature Gran % 0.2 Neutrophils % 63.6 Lymphocytes % 22.0 Monocytes % 10.9 Eosinophils % 2.7 Basophils % 0.6 Nucleated RBC % % 0 Absolute Neutrophils (1.2-6.7) 10^3/uL 3.32 Absolute Lymphocytes (1.2-3.4) 10^3/uL 1.15 L Absolute Monocytes (0.1-0.8) 10^3/uL 0.57 Absolute Eosinophils (0.0-0.7) 10^3/uL 0.14 Absolute Basophils (0.0-0.2) 10^3/uL 0.03 Sodium (136-145) mmol/L 142 Potassium (3.5-5.1) mmol/L 3.7 Chloride (98-107) mmol/L 105 Carbon Dioxide (21.0-32.0) mmol/L 28.8 Anion Gap (3-11) mmol/L 8.2 BUN (7-18) mg/dL 22 H Creatinine (0.70-1.30) mg/dL 2.2 H Estimated GFR/1.73 m2 (mL/min/1.73m2) 32.38 Glucose (74-106) mg/dL 106 Calcium (8.5-10.1) mg/dL 9.6 Total Bilirubin (0.2-1.0) mg/dL 0.3 AST (15-37) U/L 24 ALT (16-63) U/L 32 Alkaline Phosphatase (46-116) U/L 74 Total Protein (6.4-8.2) g/dL 7.9 Albumin (3.4-5.0) g/dL 4.5 TSH (0.36-3.74) uIU/mL 0.86 Urine Color (Yellow) Urine Clarity (Clear) Urine pH (5-8) Ur Specific [place] (1.005-1.025) Urine Protein (Negative) mg/dL Urine Ketones (Negative) mg/dL Urine Blood (Negative) Urine Nitrite (Negative) Urine Bilirubin (Negative) Urine Urobilinogen (Up TO 0.2) EU/dL Ur Leukocyte Esterase (Negative) Urine RBC (0-2) HPF Urine WBC (0-5) HPF Ur Epithelial Cells (Negative) HPF Urine Crystals (Negative) HPF Urine Bacteria (Negative) HPF Urine Casts (Negative) LPF Urine Mucus (Negative) Ur Culture Indicated? Urine Glucose (Negative) mg/dL Urine Opiates Screen (Negative) Urine Methadone Screen (Negative) Ur Barbiturates Screen (Negative) Ur Tricyclics Screen (Negative) Ur Amphetamines Screen (Negative) U Benzodiazepines Scrn (Negative) Urine Cocaine Screen (Negative) Ur THC Screen (Negative) Ethyl Alcohol (<10) mg/dL < 3.0 COVID-19 Source Nasal/Nares Range/Units 07/16/21 07/16/21 12:52 12:52 WBC (4.4-10.8) 10^3/uL RBC (4.36-5.78) 10^6/uL Hgb (13.5-17.5) g/dL Hct (40.0-50.0) % MCV (80-95) fL MCH (27.0-33.0) pg MCHC (32.0-36.0) % RDW (11.8-14.1) % Plt Count (130-400) 10^3/uL MPV (8.0-11.0) fL Immature Gran % Neutrophils % Lymphocytes % Monocytes % Eosinophils % Basophils % Nucleated RBC % % Absolute Neutrophils (1.2-6.7) 10^3/uL Absolute Lymphocytes (1.2-3.4) 10^3/uL Absolute Monocytes (0.1-0.8) 10^3/uL Absolute Eosinophils (0.0-0.7) 10^3/uL Absolute Basophils (0.0-0.2) 10^3/uL Sodium (136-145) mmol/L Potassium (3.5-5.1) mmol/L Chloride (98-107) mmol/L Carbon Dioxide (21.0-32.0) mmol/L Anion Gap (3-11) mmol/L BUN (7-18) mg/dL Creatinine (0.70-1.30) mg/dL Estimated GFR/1.73 m2 (mL/min/1.73m2) Glucose (74-106) mg/dL Calcium (8.5-10.1) mg/dL Total Bilirubin (0.2-1.0) mg/dL AST (15-37) U/L ALT (16-63) U/L Alkaline Phosphatase (46-116) U/L Total Protein (6.4-8.2) g/dL Albumin (3.4-5.0) g/dL TSH (0.36-3.74) uIU/mL Urine Color (Yellow) Yellow Urine Clarity (Clear) Clear Urine pH (5-8) 6.0 Ur Specific [place] (1.005-1.025) 1.010 Urine Protein (Negative) mg/dL Negative Urine Ketones (Negative) mg/dL Negative Urine Blood (Negative) Trace-intact H Urine Nitrite (Negative) Negative Urine Bilirubin (Negative) Negative Urine Urobilinogen (Up TO 0.2) EU/dL 0.2 Ur Leukocyte Esterase (Negative) Negative Urine RBC (0-2) HPF 0-2 Urine WBC (0-5) HPF Negative Ur Epithelial Cells (Negative) HPF Negative Urine Crystals (Negative) HPF Negative Urine Bacteria (Negative) HPF Negative Urine Casts (Negative) LPF Negative Urine Mucus (Negative) Negative Ur Culture Indicated? No Urine Glucose (Negative) mg/dL Negative Urine Opiates Screen (Negative) Negative Urine Methadone Screen (Negative) Negative Ur Barbiturates Screen (Negative) Negative Ur Tricyclics Screen (Negative) Negative Ur Amphetamines Screen (Negative) Negative U Benzodiazepines Scrn (Negative) Negative Urine Cocaine Screen (Negative) Negative Ur THC Screen (Negative) Negative Ethyl Alcohol (<10) mg/dL COVID-19 Source
[2021-07-16 13:35] LABS: COVID-19 PCR Negative (Negative)
== END 2021-07-16 14:36 | disposition other institution (70) ==
PROVIDERS: Emergency Provider Physician Assistant; PCP Family Medicine
DX: F32.A Depression, unspecified (principal); R45.851 Suicidal ideations; Z79.899 Other long term (current) drug therapy; Z20.822 Contact with and (suspected) exposure to COVID-19
CPT/HCPCS: 80053; 80307; 87635; 99285; 80320; 81003; 81015; 84443; 85025; 99283

== ENCOUNTER 2021-08-30 10:27 | Emergency (ER) | payer MEDICARE, MEDICAID, SELFPAY ==
[2021-08-30 10:37] VITALS: BP 131/84; PULSE 107; RESP 16; TEMP 36.7; O2SAT 98
--- NOTE | 2021-08-30 10:54 | ED.GENADUL_ITS ---
Discharge Plan Disposition Patient Disposition: OTHER Condition: Stable Discharge Details Clinical Impression: Bipolar 1 disorder Primary Care Provider: Titus Dunlap ED Provider: Kip Pham Home Meds and New Rx's Prescriptions: Continued acetylcysteine [NAC] 600 mg capsule 1,200 mg PO BID RF: 0 lisinopril 10 mg tablet 10 mg PO DAILY Qty: 90 RF: 3 Refresh Relieva PF 0.5-0.9 % drops 1 drp ophthalmic (eye) DAILY PRNRF: 0 quetiapine [Seroquel] 400 mg tablet 400 mg PO BID RF: 0 docusate sodium [Colace] 100 mg capsule 100 mg PO BID Qty: 180 RF: 3 simvastatin 20 mg tablet 20 mg PO QHS Qty: 90 RF: 3 omeprazole 40 mg capsule,delayed release(DR/EC) 40 mg PO DAILY Qty: 90 RF: 3 trazodone 100 mg Tablet 200 mg PO QHS RF: 0 cholecalciferol (vitamin D3) 125 mcg (5,000 unit) capsule 5,000 unit PO DAILY RF: 0 Probiotic 3 billion cell capsule 3,000 mmu cells PO BID RF: 0 benztropine 1 mg tablet 1 mg PO HS RF: 0 diphenhydramine HCl [Benadryl] 25 mg Capsule 25 mg PO HS RF: 0 Discharge Instructions Additional Instructions: Please follow the instructions set forth by the mental health team. Watch for new or worsening symptoms and return to the ER for any concerns. I recommend reaching out both your primary care provider and your dietary team on Wednesday to discuss your ongoing symptoms and need for outpatient reevaluation Medical Decision Making This is a 46-year-old gentleman presenting via private car from the [facility] for a mental health evaluation. Apparently he has had escalating behavior, difficulty sleeping, over the past couple of months. As of late has been pulling the fire alarm multiple times a day. Patient denies any suicidal or homicidal ideations to me. He denies any hallucinations. Patient states that he does not know why he pulled the fire alarm but does not like the sound it makes. He states that he feels safe and would like to be discharged back to his residence. He denies wishing to drink bleach to me. Given he is here for a mental health evaluation will place an interim safety plan and request a CPSO. I will request a mental health evaluation. Given he has no acute medical concerns or complaints I will not reflexively obtain medical screening laboratory values until he has had his mental health evaluation. At this time given his presentation I do not believe that he will be an involuntary placement. He does not need to urinate, will obtain a urinalysis and cough. Urinalysis unremarkable. Tox screen negative Patient is a [facility] client and Alivia from [facility] did evaluate the patient. Her recommendation are to discharge the patient back to the [facility] as he is not requesting voluntary placement and he does not meet involuntary placement. We did discuss the potential of a care bed but she states that this is not an option currently. She has placed a call out to his psychiatrist who will hopefully follow him early next week and potentially discuss medication changes. Alivia does tell me they will continue to reach out to him with him at the [facility] and that he was actually evaluated by the mental health team yesterday as well. Patient has been calm and cooperative while here in the ER. Ate lunch without difficulty [facility] was contacted and they are agreeable to having the patient transferred back to the facility. [facility] was contacted and transportation set up. Standard discharge and return precautions provided This documentation was generated using docTrackr dictation system, please disregard any oddities of phrase or misspellings. Medical Records Medical records reviewed: Yes I reviewed the patient's medical records. Lab Data Lab results reviewed: Yes I reviewed the patient's lab results. Labs: Laboratory Tests Range/Units 08/30/21 08/30/21 10:55 10:55 Urine Color (Yellow) Yellow Urine Clarity (Clear) Clear Urine pH (5-8) 5.5 Ur Specific B[place] (1.005-1.025) <= 1.005 Urine Protein (Negative) mg/dL Negative Urine Ketones (Negative) mg/dL Negative Urine Blood (Negative) Negative Urine Nitrite (Negative) Negative Urine Bilirubin (Negative) Negative Urine Urobilinogen (Up TO 0.2) EU/dL 0.2 Ur Leukocyte Esterase (Negative) Negative Urine Glucose (Negative) mg/dL Negative Urine Opiates Screen (Negative) Negative Urine Methadone Screen (Negative) Negative Ur Barbiturates Screen (Negative) Negative Ur Tricyclics Screen (Negative) Negative Ur Amphetamines Screen (Negative) Negative U Benzodiazepines Scrn (Negative) Negative Urine Cocaine Screen (Negative) Negative Ur THC Screen (Negative) Negative HPI General Mode of arrival: ambulatory . Date/Time Provider Initiated Documentation: 08/30/21 10:28 . Limitations to Documentation: no limitations . Information obtained by: patient . HPI Narrative: This is a 46-year-old gentleman, past medical history of depression, hypertension, bipolar type I disorder, esophagitis, asthma, presenting to the ER from the [facility] for a mental health evaluation. Per staff at his facility, he has not been sleeping well over the past 2 months, they have increased his Benadryl and Seroquel dose at nighttime. Apparently he made a statement about wanting to drink bleach but does not have access to bleach. He denies wanting to drink bleach to me. He denies any suicidal or homicidal ideations to me whatsoever. He reports feeling safe he would like to go back to his current facility. He has had progressive behavior changes over the past couple of months including pulling the fire alarm at his facility multiple times, apparently today pulled it at least 10 times. He denies any recent illness or trauma. Patient has no additional questions or concerns at this time. Related Data Home Medications Medication Instructions Recorded Confirmed acetylcysteine 600 mg capsule 1,200 mg PO BID cap 02/01/20 08/30/21 lisinopril 10 mg tablet 10 mg PO DAILY #90 tab 11/04/20 08/30/21 carboxymethylcellulose 0.5 1 drp OPHTHALMIC (EYE) DAILY PRN 02/21/21 08/30/21 %-glycerin 0.9 % (PF) eye drops ml quetiapine 400 mg tablet 400 mg PO BID 02/21/21 08/30/21 trazodone 200 mg PO QHS 07/02/21 08/30/21 cholecalciferol (vitamin D3) 5,000 unit PO DAILY 07/16/21 08/30/21 docusate sodium 100 mg capsule 100 mg PO BID #180 cap 08/12/21 08/30/21 omeprazole 40 mg capsule,delayed 40 mg PO DAILY #90 cap 08/12/21 08/30/21 release simvastatin 20 mg tablet 20 mg PO QHS #90 tab 08/12/21 08/30/21 Probiotic 3,000 mmu cells PO BID 08/30/21 08/30/21 benztropine 1 mg PO HS 08/30/21 08/30/21 diphenhydramine HCl [Benadryl] 25 mg PO HS 08/30/21 08/30/21 Previous Rx's Medication Instructions Recorded lisinopril 10 mg tablet 10 mg PO DAILY #90 tab 11/04/20 docusate sodium 100 mg capsule 100 mg PO BID #180 cap 08/12/21 omeprazole 40 mg capsule,delayed 40 mg PO DAILY #90 cap 08/12/21 release simvastatin 20 mg tablet 20 mg PO QHS #90 tab 08/12/21 Allergies Allergy/AdvReac Type Severity Reaction Status Date / Time dextromoramide Allergy Unknown Verified 08/11/21 11:45 bupropion [From Wellbutrin] AdvReac Mild jittery Verified 08/11/21 11:45 fluvoxamine [From Luvox] AdvReac Mild jittery Verified 08/11/21 11:45 methylphenidate AdvReac Mild jittery Verified 08/11/21 11:45 [From Ritalin] General Stated Complaint: PsychEval KARL: 2 Review of Systems Constitutional Constitutional: Denies fatigue, Denies fever(s), Denies headache(s) and Denies weakness ENT Ears, Nose, Mouth, and Throat: Denies headache(s) Cardiovascular Cardiovascular: Denies chest pain and Denies dyspnea Respiratory Respiratory: Denies cough and Denies dyspnea Gastrointestinal Gastrointestinal: Denies abdominal pain, Denies nausea and Denies vomiting Genitourinary Genitourinary: Denies dysuria Musculoskeletal Musculoskeletal: Denies back pain Integumentary/Breasts Skin/Breast: Denies rash Neurologic Neurologic: Denies headache(s) and Denies weakness Psychiatric Psychiatric: Denies homicidal ideation and Denies suicidal ideation Endocrine Endocrine: Denies fatigue PFSH All Active Problems (Updated 08/30/21 @ 13:48 by CARIN Boykin) Depression (Chronic) Depression with suicidal ideation (Acute) Essential hypertension (Acute) Bipolar 1 disorder (Chronic) Esophagitis (Acute) Environmental allergies (Acute) Heart murmur (Acute) History of blood transfusion (Acute) Asthma (Chronic) Chronic anemia (Acute) Testicular cancer (Acute) Renal impairment (Chronic) Hyperlipidemia (Acute) Surgical History History of removal of testicle Social History Smoking/Tobacco Use Status: Never Smoking risk assessment performed?: Yes Alcohol Intake: never Drug use: Never Substance use type: does not use Adopted: No Caregiver/Support person: Yes Foster care: No [facility]hold members[facility] [place] [facility]: other Details: [facility] Custodial- [place] Number of Children: 0 Communication Needs: None Education Level: high school Do you need help understanding health information?: Often current occupation: Disabled Sexually active: No Do you think of yourself as: straight/heterosexual Current gender identity: male What is your relationship status?: don't know How often do you talk on the phone with friends or family?: three or more times per week Panel score (0-1 are the most socially isolated patients): 1 What type of physical activity do you participate in: walking Frequency: daily Seatbelt use: always Helmet use: Yes (NA) Working smoke detector in home: Yes Fire extinguisher in home: Yes Carbon monox detector in home: Yes Do you feel safe at home: Yes Do you feel safe in your relationship?: Yes Exam Const General: cooperative, healthy appearing, comfortable and no acute distress Orientation: alert and awake HENNC Head: normal to inspection, normocephalic and atraumatic Face and sinus: normal facial exam Mouth: moist mucous membranes Eyes General: appearance normal, both eyes and all related structures Conjunctivae: conjunctivae normal Neck Neck: normal visual inspection, full ROM, no meningeal signs, trachea midline, supple and nontender Resp Effort & Inspection: normal respiratory effort and able to speak in complete sentences Auscultation: clear to auscultation bilaterally Cardio Rate: regular rate Rhythm: regular rhythm GI Palpation: soft and nontender Back/Spine/Pelvis Back: No back tenderness Skin General skin exam: no rashes or lesions noted Neuro General: patient alert, patient awake, moves all extremities and no focal motor deficits Cognition: normal cognition Speech: speech normal Gait: normal gait Motor: muscle tone normal throughout Sensory Exam: no sensory deficits noted Extrem General: normal to inspection and full ROM Psych Appearance: grossly normal Mental Status: mental status grossly normal Speech and Movement: speech and movement normal Mood: congruent mood Affect: normal affect Attitude: cooperative Thought Process: normal Thought Content: normal Insight: fair Judgment: fair Course Vital Signs Vital signs: Vital Signs Temperature 36.7 C 08/30/21 10:37 Pulse 107 H 08/30/21 10:37 Respiratory Rate 16 08/30/21 10:37 Blood Pressure 131/84 08/30/21 10:37 Pulse Oximetry 98 08/30/21 10:37 Temperature 36.7 C 08/30/21 10:37 Temperature Source Skin 08/30/21 10:37 Pulse 107 H 08/30/21 10:37 Respiratory Rate 16 08/30/21 10:37 Respiratory Effort 08/30/21 10:47 Blood Pressure 131/84 08/30/21 10:37 Blood Pressure Position Sitting 08/30/21 10:37 Pulse Oximetry 98 08/30/21 10:37 Oxygen Delivery Method Room Air 08/30/21 10:37 Oxygen Flow Rate 0 08/30/21 10:37 Pain Level 0 08/30/21 10:37
[2021-08-30 11:22] LABS: Bilirubin Negative (Negative); Blood Negative (Negative); Clarity Clear (Clear); Glucose Negative (Negative); Ketones Negative (Negative); Leukocyte Esterase Negative (Negative); Nitrite Negative (Negative); Specific Gravity <= 1.005 (1.005-1.025); Urobilinogen 0.2 EU/dL (Up TO 0.2); pH 5.5 (5-8)
[2021-08-30 11:29] LABS: *AMPHETAMINES SCREEN URINE Negative (Negative); *BARBITURATES SCREEN URINE Negative (Negative); *BENZODIAZEPINES SCREEN URINE Negative (Negative); Cannabinoids THC Negative (Negative); Cocaine Screen,Urine Negative (Negative); METHADONE URINE SCREEN Negative (Negative); OPIATES URINE SCREEN Negative (Negative)
[2021-08-30 11:30] LABS: Tricyclic Antidepressants Negative (Negative)
[2021-08-30 14:50] VITALS: BP 129/88; PULSE 86; RESP 18; O2SAT 96
== END 2021-08-30 15:09 | disposition other institution (70) ==
PROVIDERS: Emergency Provider Physician Assistant; PCP Family Medicine
DX: F31.9 Bipolar disorder, unspecified (principal); Z79.899 Other long term (current) drug therapy
CPT/HCPCS: 80307; 99284; 81003; 99283

== ENCOUNTER 2022-08-12 03:44 | Outpatient (CLI) | payer MEDICARE, MEDICAID, SELFPAY ==
[2022-08-12 12:24] LABS: Anion Gap 7.5 mmol/L (3-11); BUN 21 mg/dL (7-18); CO2 30.5 mmol/L (21.0-32.0); CREATININE 2.2 mg/dL (0.70-1.30); Calcium 9.8 mg/dL (8.5-10.1); Chloride 105 mmol/L (98-107); Estimated GFR 36.04 (mL/min/1.73m2); Glucose 102 mg/dL (74-106); Sodium 143 mmol/L (136-145)
== END 2022-08-12 03:45 | disposition home or self-care (01) ==
LOC: LOS 03:44
PROVIDERS: PCP Family Medicine; Visit Provider Family Medicine
DX: I10 Essential (primary) hypertension (principal); N28.89 Other specified disorders of kidney and ureter
CPT/HCPCS: 36415; 80048

== ENCOUNTER 2023-10-20 10:14 | Outpatient (CLI) | payer MEDICARE, MEDICAID, SELFPAY ==
[2023-10-20 10:49] LABS: Anion Gap 11.9 mmol/L (3-11); BUN 19 mg/dL (7-18); CO2 26.1 mmol/L (21.0-32.0); CREATININE 2.5 mg/dL (0.70-1.30); Calcium 9.7 mg/dL (8.5-10.1); Chloride 108 mmol/L (98-107); Estimated GFR 30.73 (mL/min/1.73m2); Glucose 120 mg/dL (74-106); Potassium 3.1 mmol/L (3.5-5.1); Sodium 146 mmol/L (136-145)
[2023-10-20 19:24] LABS: Hepatitis C Ab w Rflx HCV PCR Negative (Negative)
[2023-10-20 19:26] LABS: HIV-1/2 Ag & Ab Screen Negative (Negative)
== END 2023-10-20 10:15 | disposition home or self-care (01) ==
LOC: LBO 10:15
PROVIDERS: PCP Family Medicine; Visit Provider Family Medicine
DX: Z11.3 Encounter for screening for infections with a predominantly sexual mode of transmission (principal); N28.9 Disorder of kidney and ureter, unspecified
CPT/HCPCS: 36415; 80048; 86803; 87389

== ENCOUNTER 2023-11-22 18:27 | Outpatient (CLI) | payer MEDICARE, MEDICAID, SELFPAY ==
[2023-11-22 16:15] LABS: Anion Gap 13.1 mmol/L (3-11); BUN 26 mg/dL (7-18); CO2 24.9 mmol/L (21.0-32.0); CREATININE 2.4 mg/dL (0.70-1.30); Calcium 9.9 mg/dL (8.5-10.1); Chloride 107 mmol/L (98-107); Estimated GFR 32.27 (mL/min/1.73m2); Glucose 110 mg/dL (74-106); Potassium 3.2 mmol/L (3.5-5.1); Sodium 145 mmol/L (136-145)
== END 2023-11-22 18:28 | disposition home or self-care (01) ==
LOC: LBO 18:27
PROVIDERS: PCP Family Medicine; Visit Provider Family Medicine
DX: E87.6 Hypokalemia (principal); I10 Essential (primary) hypertension
CPT/HCPCS: 36415; 80048

== ENCOUNTER 2025-05-01 02:06 | Outpatient (CLI) | payer MEDICARE, MEDICAID, SELFPAY ==
[2025-05-01 09:30] LABS: Anion Gap 11.3 mmol/L (3-11); BUN 20 mg/dL (7-18); CO2 26.7 mmol/L (21.0-32.0); Calcium 9.9 mg/dL (8.5-10.1); Chloride 111 mmol/L (98-107); Estimated GFR 35.60 (mL/min/1.73m2); Glucose 126 mg/dL (74-106); Potassium 3.4 mmol/L (3.5-5.1); Sodium 149 mmol/L (136-145)
== END 2025-05-01 02:07 | disposition home or self-care (01) ==
LOC: LBO 02:06
PROVIDERS: PCP Family Medicine; Referring Provider Family Medicine; Visit Provider Family Medicine
DX: I10 Essential (primary) hypertension (principal)
CPT/HCPCS: 36415; 80048

== ENCOUNTER 2025-07-06 03:27 | Outpatient (CLI) | payer MEDICARE, MEDICAID, SELFPAY ==
[2025-07-06 13:39] LABS: Abs Immature Grans 0.03 10^3/uL (0.0-0.06); HCT 35.4 % (40.0-50.0); HGB 12.2 g/dL (13.5-17.5); Immature Grans % 0.4 %; MCH 32.1 pg (27.0-33.0); MCHC 34.5 % (32.0-36.0); MCV 93 fL (80-95); MPV 11.5 fL (8.0-11.0); Platelet Count 178 10^3/uL (130-400); RBC 3.80 10^6/uL (4.36-5.78); RDW 12.7 % (11.8-14.1); RDW-SD 43.1 fL; WBC 6.86 10^3/uL (4.4-10.8)
[2025-07-06 13:54] LABS: Hemoglobin A1C 6.0 % (<5.7)
[2025-07-06 14:16] LABS: ALT 71 U/L (16-63); AST 40 U/L (15-37); Albumin 3.7 g/dL (3.4-5.0); Alkaline Phosphatase 95 U/L (46-116); Anion Gap 13.5 mmol/L (3-11); BUN 25 mg/dL (7-18); Bilirubin, Total 0.4 mg/dL (0.2-1.0); CO2 23.5 mmol/L (21.0-32.0); Calcium 9.4 mg/dL (8.5-10.1); Calculated LDL 111 mg/dL (<100); Chloride 108 mmol/L (98-107); Cholesterol 189 mg/dL (<200); Estimated GFR 35.60 (mL/min/1.73m2); Glucose 158 mg/dL (74-106); HDL Cholesterol 39 mg/dL (>or=40); Potassium 3.2 mmol/L (3.5-5.1); Sodium 145 mmol/L (136-145); TSH 1.27 uIU/mL (0.36-3.74); Total Protein 7.4 g/dL (6.4-8.2); Triglyceride 195 mg/dL (<150)
== END 2025-07-06 03:28 | disposition home or self-care (01) ==
LOC: LBO 03:27
PROVIDERS: PCP Family Medicine; Visit Provider Registered Nurse
DX: F32.A Depression, unspecified (principal)
CPT/HCPCS: 36415; 80053; 80061; 83036; 84443; 85025